=== PATIENT | female | born 1940 | race Caucasian/White ===

== ENCOUNTER 2017-02-08 12:54 | Emergency (ER) | payer OTHER, MEDICARE ==
[~2017-02-08] VITALS: Ht 157.5 cm; Wt 58.5 kg
[~2017-02-08 12:54] MED LIST: AMLODIPINE BES2.5 M1 PO; CLOPIDOGREL75 M1 PO; FLUVIRIN 245 MCG/0.1 IM; GLIPIZIDE ER5 M1 PO; LIPITOR80 M1 PO; LISINOPRIL20 M1 PO; MEDROL DOSEPAK1 PAC PO; METOPROLOL TART25 M1 PO; NORVASC5 M1 PO; OMEPRAZOLE40 M1 PO
[2017-02-08 14:05] LABS: ABSOLUTE BASOPHIL COUNT 0.2 /CUMM (0.0-0.2); ABSOLUTE EOSINOPHIL COUNT 0.2 /CUMM (0.0-0.7); ABSOLUTE GRANULOCYTE CT 6.8 /CUMM (1.4-6.5); ABSOLUTE LYMPH COUNT 2.4 /CUMM (1.2-3.4); ABSOLUTE MONOCYTE COUNT 0.7 /CUMM (0.10-0.60); BASOPHIL % 1.5 % (0.0-2.0); EOSINOPHIL % 1.8 % (0-5); GRANULOCYTE % 66.4 % (42.2-75.2); HEMATOCRIT 42.1 % (37-47); MEAN CORPUSCULAR HGB 30.5 PG (27.0-31.0); MEAN CORPUSCULAR HGB CONC 33.9 G/DL (33.0-37.0); MEAN CORPUSCULAR VOLUME 89.9 FL (81.0-99.0); MEAN PLATELET VOLUME 7.5 FL (7.4-10.4); PLATELET COUNT 478 /CUMM (130-400); RBC DISTRIBUTION WIDTH 14.1 % (11.5-14.5); RED BLOOD CELL CT 4.69 /CUMM (4.20-5.40); WHITE BLOOD CELL COUNT 10.2 /CUMM (4.8-10.8)
[2017-02-08] MEDS ORDERED: HYDRALAZINE HCL25 M1 PO (14:44)
[2017-02-08] MEDS ORDERED: ASPIRIN81 M4 PO (14:45)
[2017-02-08] MEDS ORDERED: RANITIDINE HCL150 MG PO (14:46)
--- NOTE | 2017-02-08 15:01 | ED AMS/SEIZURE/WEAK/DIZZY ---
History of Present Illness General Chief Complaint: Dizziness Stated Complaint: DIZZIENESS, PAIN IN NECK Source: patient, family, old records Exam Limitations: no limitations Vital Signs & Intake/Output Vital Signs & Intake/Output Vital Signs Date Time Temp Pulse Resp B/P Pulse O2 O2 Flow FiO2 Ox Delivery Rate 02/08 1522 97.1 68 18 166/72 98 Room Air 02/08 1315 97.3 70 20 180/90 97 Room Air Allergies Coded Allergies: NO KNOWN ALLERGIES (03/09/16) Reconcile Medications Amlodipine Besylate 2.5 MG TABLET 1 TAB PO DAILY BP (Reported) Amlodipine Besylate (Norvasc) 5 MG TABLET 1 TAB PO DAILY BP (Reported) Aspirin (Aspirin*) 81 MG TAB.CHEW 1 TAB PO DAILY HEART HEALTH (Reported) Atorvastatin Calcium (Lipitor) 80 MG TABLET 1 TAB PO DAILY CHOLESTEROL ( Reported) Clopidogrel Bisulfate (Clopidogrel) 75 MG TABLET 1 TAB PO DAILY BLOOD THINNER (Reported) Glipizide (Glipizide ER) 5 MG TAB.ER.24 1 TAB PO DAILY DIABETES (Reported) Hydralazine HCl 25 MG TABLET 1 TAB PO TID HEART (Reported) Lisinopril 20 MG TABLET 1 TAB PO DAILY BP (Reported) Metoprolol Tartrate 25 MG TABLET 1 TAB PO BID BP (Reported) Omeprazole 40 MG CAPSULE.DR 1 CAP PO DAILY GI (Reported) Ranitidine (Ranitidine HCl) 150 MG TABLET 1 TAB PO DAILY GI (Reported) Triage Note: PT C/O DIZZINESS X 1 WEEK. STATES WHEN SHE GOT OUT OF BED TODAY SHE ALMOST FELL. DENIES CP/SOB. STATES SHE HAD A BOUT OF VERTIGO IN THE PAST Triage Nurses Notes Reviewed? yes Onset: Abrupt Duration: week(s):, intermittent Timing: recent history Injury Environment: home No Modifying Factors: none HPI: 76-year-old female comes into emergency room with complaints of feeling dizzy and lightheaded intermittently over the last few weeks. She notices that her symptoms are worse when she sits or stands or lays to sit. She denies any chest pain shortness of breath or palpitations or syncopal episodes. She also has some very mild intermittent pain to the right side of her posterior neck. She does have a history of carotid artery endarterectomy. Nothing seems to make this worse. She currently has no symptoms at this time. (GIMARCELA REED) Past History Travel History Traveled to [place] past 21 day No Medical History Any Pertinent Medical History? see below for history Cardiovascular: CAD Gastrointestinal: ANURYSM Endocrine: diabetes Surgical History Surgical History: CABG, MITRAL VALVE REPLACEMENT Psychosocial History What is your primary language Greek Tobacco Use: Never used ETOH Use: denies use Illicit Drug Use: denies illicit drug use Family History Hx Contributory? No (MARCELA ENAMORADO) Review of Systems Review of Systems Constitutional: Reports: no symptoms. EENTM: Reports: no symptoms. Respiratory: Reports: no symptoms. Cardiovascular: Reports: see HPI. GI: Reports: no symptoms. Genitourinary: Reports: no symptoms. Musculoskeletal: Reports: no symptoms. Skin: Reports: no symptoms. Neurological/Psychological: Reports: no symptoms. Hematologic/Endocrine: Reports: no symptoms. Immunologic/Allergic: Reports: no symptoms. All Other Systems: Reviewed and Negative (MARCELA ENAMORADO) Physical Exam Physical Exam General Appearance: well developed/nourished, no apparent distress, alert Head: atraumatic, normal appearance Eyes: Bilateral: normal appearance, EOMI. Ears, Nose, Throat: normal pharynx, normal ENT inspection, hearing grossly normal Neck: normal inspection, full range of motion, no bruit appreciated Respiratory: normal breath sounds, no respiratory distress Cardiovascular: regular rate/rhythm Gastrointestinal: soft Back: normal inspection Extremities: normal range of motion Neurologic/Psych: no motor/sensory deficits, awake, alert, oriented x 3, normal gait, normal mood/affect Skin: intact, normal color Core Measures ACS in differential dx? Yes CVA/TIA Diagnosis: No Severe Sepsis Present: No Septic Shock Present: No (MARCELA ENAMORADO) Progress Differential Diagnosis: arrythmia, alcohol intoxication, anemia, CVA/stroke, dehydration, drug intoxication, encephalitis, electrolyte imbalance, GI bleed, intracranial Hem., intracranial mass/tumor, labrynthitis, meningitis, Meniere's disease, migraine CEJA, multiple sclerosis, postural hypotension, presyncope, post -traumatic vertigo, sepsis, seizure disorder, UTI/pyelo Plan of Care: Orders Procedure Date/time Status MISTAKE 02/08 1356 Active Telemetry/Hospice Registered Nurse 02/08 1353 Active TROPONIN LEVEL 02/08 1323 Complete COMPREHENSIVE METABOLIC PANEL 02/08 1323 Complete CBC WITHOUT DIFFERENTIAL 02/08 1323 Complete EKG 02/08 1257 Active Laboratory Tests 02/08/17 1353: Anion Gap 9, Estimated GFR > 60, BUN/Creatinine Ratio 26.7 H, Glucose 116 H, Calcium 10.3 H, Total Bilirubin 0.6, AST 28, ALT 29, Alkaline Phosphatase 112, Troponin I < 0.01, Total Protein 7.9, Albumin 4.4, Globulin 3.5, Albumin/ Globulin Ratio 1.3, CBC w Diff NO MAN DIFF REQ, RBC 4.69, MCV 89.9, MCH 30.5, RDW 14.1, MPV 7.5, Gran % 66.4, Lymphocytes % 23.8, Monocytes % 6.5, Eosinophils % 1.8, Basophils % 1.5, Absolute Granulocytes 6.8 H, Absolute Lymphocytes 2.4, Absolute Monocytes 0.7 H, Absolute Eosinophils 0.2, Absolute Basophils 0.2, PUBS MCHC 33.9 Initial ED EKG: normal intervals, normal p-waves, normal sinus rhythm, rate (67) , nonspecific ST T wave chg, new t wave inversion V1 (MARCELA ENAMORADO) Departure Departure Disposition: HOME OR SELF CARE Condition: Stable Clinical Impression Primary Impression: Orthostatic hypotension Referrals: LINDSAY LAWRENCE,MAX Evans (PCP/Family) Additional Instructions: Go back to taking hydralazine 50 mg 3 times a day. Contact your casino host for follow-up this week for blood pressure management. Please return to the emergency room immediately if any chest pain shortness of breath palpitations or any other concerns worsening symptoms. Please go over all results of today's visit with your primary care doctor. Contact your primary care doctor to let them know you were here in the emergency room. There may be nonspecific findings which may not be related to your visit today here in the emergency room but may require further evaluation and chronic monitoring by your primary care doctor. If you had a laceration today the chance of foreign body always remains. You should follow-up with your primary care doctor for recheck in 3-5 days for a wound check. If you had an x-ray done there is a chance that a fracture could have been missed on initial read and you should follow-up with your primary care doctor for repeat x-rays if symptoms persist. If your blood pressure was elevated here in the emergency room please have rechecked by her primary care doctor within the next 48 hours by your primary care doctor. If you were prescribed a narcotic here in the emergency room or any type of controlled substances you're not allowed to drive while taking this medication or operate any type of heavy machinery. Narcotics can make you feel lightheaded dizziness nausea and can cause constipation. You may need to sampler pickup a stool softener. Thank you for choosing [facility] emergency room. Please return to the emergency room immediately if you have any other concerns worsening of symptoms. Departure Forms: Customer Survey General Discharge Information Comments 02/08/2017 3:35:37 PM Case was discussed with Dr. michel and Dr. Mayer. Patient is orthostatic here but she clinically looks well and is not symptomatic currently. It was decided that the EKG changes were not significant and due to the fact that the patient clinically looks well and wants to go home she'll be discharged with close follow-up with Dr. Mayer in the office for blood pressure management. Patient slightly hypertensive here. She reports that her blood pressure is always high. It was decided that she should not be on the hydralazine 100 mg at nighttime. Patient reevaluated multiple times. Her right-sided neck pain is more muscular in nature as opposed any type of carotid artery dissection. She has no focal neurological deficits. She is sitting up on the edge of the stretcher waiting for a disposition. As stated before patient reevaluated times in clinically looks well. (MARCELA ENAMORADO) PA/PEANUT SHELLER Co-Sign Statement Statement: ED Attending supervision documentation- x I saw and evaluated the patient. I have also reviewed all the pertinent lab results and diagnostic results. I agree with the findings and the plan of care as documented in the PA's/PEANUT SHELLER's documentation. [] I have reviewed the ED Record and agree with the PA's/PEANUT SHELLER's documentation. [] Additions or exceptions (if any) to the PAs/PEANUT SHELLER's note and plan are summarized below: [] (MIKAELA LAWRENCE,VER[place])
[2017-02-08 15:22] VITALS: BP 166/72
== END 2017-02-08 15:27 ==
LOC: ERH 12:54
PROVIDERS: Physician Assistant Medical
DX: I95.1 Orthostatic hypotension (principal); M54.2 Cervicalgia
CPT/HCPCS: 93005; 93010